=== PATIENT | male | born 1965 | race Caucasian/White ===

== ENCOUNTER 2018-01-17 09:24 | Inpatient (IN) | payer BC, OTHER ==
--- NOTE | 2018-01-17 10:00 | EDPHY ---
H & P Time Seen by Provider: 01/17/18 09:45 HPI/ROS: Chief complaint. Fatigue, increased urination HPI. Patient is a 52-year-old male who finish the lead [employer] running race last weekend. He had nausea vomiting the 1st 2 days. He has had continued fatigue. He has had frequent urination of clear urine without dysuria. Due to training injuries he was taking lots of Advil during the race but not since. Maybe had a fever a few days ago. No sore throat of cough though he did have some shortness of breath originally. He has some crampy mid abdominal pain and now epigastric pain. Decreased stool over the past week. Normally healthy. No similar symptoms previously ROS Constitutional. Fatigue Eyes. no problems with vision ENT. no sore throat, no nasal drainage Cardiovascular. no chest pain Respiratory. Congestion and shortness of breath Abdominal. Abdominal pain with nausea vomiting . Frequent urination MS. no calf pain/swelling, no neck/back pain, no joint pain Skin. no rash Lymph. no swollen glands Neuro. no headache, no dizziness, no difficulty walking or with speech Past Medical/Surgical History: Healthy Social History: , nonsmoker, no alcohol Smoking Status: Never smoked Physical Exam: General Appearance: Alert well-developed male mild distress vital signs are stable Eyes: Pupils equal and round no pallor or injection. ENT, Mouth: Mucous membranes are moist. Respiratory: There are no retractions, lungs are clear to auscultation. Cardiovascular: Regular rate and rhythm. Gastrointestinal: Abdomen is soft with epigastric tenderness. Some mild low abdominal tenderness. No particular tenderness at McBurney's point. No masses. Normal bowel sounds Neurological: Awake and alert, sensory and motor exams grossly normal. Skin: Warm and dry, no rashes. Musculoskeletal: Neck is supple nontender. Extremities symmetrical, full range of motion. Psychiatric: Patient is oriented X 3, there is no agitation. Constitutional: Initial Vital Signs Temperature (C) 36.7 C 01/17/18 09:29 Heart Rate 50 L 01/17/18 09:29 Respiratory Rate 15 01/17/18 09:29 Blood Pressure 145/93 H 01/17/18 09:29 O2 Sat (%) 98 01/17/18 09:29 O2 Delivery Mode Room Air Allergies/Adverse Reactions: Penicillins Allergy (Unknown, Verified 01/17/18 11:33) Other-Enter Comments Home Medications: Medication Instructions Recorded NK [No Known Home Meds] 01/17/18 Medical Decision Making - Diagnostics Imaging Results: Imaging Impressions Chest X-Ray 01/17/18 10:23 Impression: 1. No focal pneumonia. 2. No pneumothorax. Chest x-ray interpreted by me is normal Procedures: IV normal saline ED Course/Re-evaluation: The patient in and I discussed imaging and lab results. We discussed treatment plan including recommendation for admission. They expressed understanding and agreement I consulted and discussed the case with Nephrology due to the patient's acute renal failure and rhabdomyolysis. They recommend fluid resuscitation. I consulted discussed case with Dr. Tesfaye, hospitalist who agrees to the admission Differential Diagnosis: I considered intestinal ischemia. The patient has pancreatitis. He has acute renal failure. He has rhabdomyolysis. No evidence for pneumonia - Data Points Laboratory Results: Laboratory Results 01/17/18 09:50 01/17/18 09:50 01/17/18 01/17/18 01/17/18 10:55 09:50 09:50 WBC RBC Hgb Hct MCV MCH MCHC RDW Plt Count MPV Neut % (Auto) Lymph % (Auto) [place] % (Auto) Eos % (Auto) Baso % (Auto) Nucleat RBC Rel Count Absolute Neuts (auto) Absolute Lymphs (auto) Absolute Monos (auto) Absolute Eos (auto) Absolute Basos (auto) Absolute Nucleated RBC Immature Gran % Immature Gran # PT 13.3 SEC SEC (12.0-15.0) INR 0.99 (0.83-1.16) APTT 29.7 SEC SEC (23.0-38.0) Sodium Potassium Chloride Carbon Dioxide Anion Gap BUN Creatinine Estimated GFR Glucose Calcium Total Bilirubin 0.7 mg/dL mg/dL (0.1-1.4) Conjugated Bilirubin 0.1 mg/dL mg/dL (0.0-0.5) Unconjugated Bilirubin 0.6 mg/dL mg/dL (0.0-1.1) AST 60 IU/L H IU/L (17-59) ALT 361 IU/L H IU/L (21-72) Alkaline Phosphatase 57 IU/L IU/L (38-126) Creatine Kinase CK-MB (CK-2) Fraction CK-MB (CK-2) % Creatine Kinase Interp Total Protein 6.5 g/dL g/dL (6.3-8.2) Albumin 4.0 g/dL g/dL (3.5-5.0) Lipase Urine Color PALE YELLOW Urine Appearance CLEAR Urine pH 5.0 (5.0-7.5) Ur Specific [place] 1.010 (1.002-1.030) Urine Protein NEGATIVE (NEGATIVE) Urine Ketones NEGATIVE (NEGATIVE) Urine Blood 2+ H (NEGATIVE) Urine Nitrate NEGATIVE (NEGATIVE) Urine Bilirubin NEGATIVE (NEGATIVE) Urine Urobilinogen NEGATIVE EU EU (0.2-1.0) Ur Leukocyte Esterase NEGATIVE (NEGATIVE) Urine RBC 10-15 /hpf H /hpf (0-3) Urine WBC 1-3 /hpf /hpf (0-3) Ur Epithelial Cells NONE SEEN /lpf /lpf (NONE-1+) Urine Mucus TRACE /lpf /lpf (NONE-1+) Urine Glucose NEGATIVE (NEGATIVE) 01/17/18 01/17/18 09:50 09:50 WBC 9.71 10^3/uL H 10^3/uL (3.80-9.50) RBC 5.10 10^6/uL 10^6/uL (4.40-6.38) Hgb 15.5 g/dL g/dL (13.7-17.5) Hct 44.1 % % (40.0-51.0) MCV 86.5 fL fL (81.5-99.8) MCH 30.4 pg pg (27.9-34.1) MCHC 35.1 g/dL g/dL (32.4-36.7) RDW 12.9 % % (11.5-15.2) Plt Count 284 10^3/uL 10^3/uL (150-400) MPV 9.1 fL fL (8.7-11.7) Neut % (Auto) 75.6 % H % (39.3-74.2) Lymph % (Auto) 10.2 % L % (15.0-45.0) [place] % (Auto) 10.8 % % (4.5-13.0) Eos % (Auto) 2.2 % % (0.6-7.6) Baso % (Auto) 0.6 % % (0.3-1.7) Nucleat RBC Rel Count 0.0 % % (0.0-0.2) Absolute Neuts (auto) 7.34 10^3/uL H 10^3/uL (1.70-6.50) Absolute Lymphs (auto) 0.99 10^3/uL L 10^3/uL (1.00-3.00) Absolute Monos (auto) 1.05 10^3/uL H 10^3/uL (0.30-0.80) Absolute Eos (auto) 0.21 10^3/uL 10^3/uL (0.03-0.40) Absolute Basos (auto) 0.06 10^3/uL 10^3/uL (0.02-0.10) Absolute Nucleated RBC 0.00 10^3/uL 10^3/uL (0-0.01) Immature Gran % 0.6 % % (0.0-1.1) Immature Gran # 0.06 10^3/uL 10^3/uL (0.00-0.10) PT INR APTT Sodium 140 mEq/L mEq/L (135-145) Potassium 5.3 mEq/L H mEq/L (3.3-5.0) Chloride 106 mEq/L mEq/L (97-110) Carbon Dioxide 25 mEq/l mEq/l (22-31) Anion Gap 9 mEq/L mEq/L (8-16) BUN 92 mg/dL H mg/dL (7-23) Creatinine 3.6 mg/dL H mg/dL (0.7-1.3) Estimated GFR 18 Glucose 103 mg/dL H mg/dL (70-100) Calcium 9.8 mg/dL mg/dL (8.5-10.4) Total Bilirubin Conjugated Bilirubin Unconjugated Bilirubin AST ALT Alkaline Phosphatase Creatine Kinase 612 IU/L H IU/L (0-224) CK-MB (CK-2) Fraction 9.71 ng/mL H ng/mL (0.00-4.55) CK-MB (CK-2) % 1.6 % % (0.0-4.0) Creatine Kinase Interp NEGATIVE (NEGATIVE) Total Protein Albumin Lipase 776 IU/L H IU/L (23-300) Urine Color Urine Appearance Urine pH Ur Specific [place] Urine Protein Urine Ketones Urine Blood Urine Nitrate Urine Bilirubin Urine Urobilinogen Ur Leukocyte Esterase Urine RBC Urine WBC Ur Epithelial Cells Urine Mucus Urine Glucose Medications Given: Heparin Sodium (Porcine) (Heparin Sc Injection) 5,000 unit SC Q8 DAVE Stop: 07/16/18 13:59 Last Admin: 01/17/18 15:03 Dose: 5,000 unit Sodium Chloride (Ns) 1,000 mls @ 125 mls/hr IV CONT DAVE Stop: 07/16/18 15:59 Last Admin: 01/17/18 16:14 Dose: 1,000 mls Discontinued Medications Sodium Chloride (Ns) 1,000 mls @ 0 mls/hr IV EDNOW ONE; Wide Open PRN Reason: Protocol Stop: 01/17/18 10:23 Last Admin: 01/17/18 10:27 Dose: 1,000 mls Sodium Chloride (Ns) 1,000 mls @ 0 mls/hr IV EDNOW ONE; Wide Open PRN Reason: Protocol Stop: 01/17/18 11:20 Last Admin: 01/17/18 11:27 Dose: 1,000 mls Ondansetron HCl (Zofran) 4 mg IVP EDNOW ONE Stop: 01/17/18 11:53 Last Admin: 01/17/18 11:55 Dose: 4 mg Departure - Departure Disposition: [facility] In[facility] Acute Clinical Impression: Rhabdomyolysis Qualifiers: Rhabdomyolysis type: traumatic Encounter type: initial encounter Qualified Code (s): T79.6XXA - Traumatic ischemia of muscle, initial encounter Renal failure, acute Qualifiers: Acute renal failure type: unspecified Qualified Code(s): N17.9 - Acute kidney failure, unspecified Pancreatitis Qualifiers: Chronicity: acute Pancreatitis type: unspecified pancreatitis type Acute pancreatitis complication: unspecified Qualified Code(s): K85.90 - Acute pancreatitis without necrosis or infection, unspecified Condition: Fair
[2018-01-17] MEDS ORDERED: NS 1,000 ML IV ONE ×2 (10:22→11:19)
[2018-01-17 10:30] LABS: PLATELET COUNT 284 10^3/uL (150-400)
[2018-01-17 10:34] LABS: CREATINE KINASE 612 IU/L (0-224)
[2018-01-17 10:38] LABS: INR 0.99 (0.83-1.16); PROTIME(PATIENT) 13.3 SEC (12.0-15.0)
[2018-01-17] MEDS ORDERED: ONDANSETRON 4 MG/2 ML VIAL IVP PRN (11:29)
[2018-01-17] MEDS ORDERED: ONDANSETRON DISINTEGRATING 4 MG TAB PO PRN (11:29)
[2018-01-17] MEDS ORDERED: ACETAMINOPHEN 325 MG TAB PO PRN (11:29)
[2018-01-17] MEDS ORDERED: ONDANSETRON 4 MG/2 ML VIAL IVP ONE (11:52)
[2018-01-17] MEDS ORDERED: hydrALAZINE 20 MG/ML VIAL IVP PRN (12:07)
--- NOTE | 2018-01-17 13:51 | GHP ---
[f rep st] HISTORY AND PHYSICAL DATE OF ADMISSION: 01/17/2018 CHIEF COMPLAINT: Nausea, fatigue. HISTORY OF PRESENT ILLNESS: A pleasant 52-year-old male with no past medical history, presenting with fatigue and nausea for the past week. He participated in [employer] last weekend. Thursday he completed 100 mile run. The week prior, he completed 100 mile mountain bike ride, followed by a 10K. The day he completed the race, he went home and felt fairly well, but then was overcome by fatigue. Was sleeping up to 20 hours a day for 2 days. Subsequently developed intermittent nausea. Was still eating but decreased amount of food intake. He presented to the ER today because he just felt out of it. He thinks he may have had a subjective fever. He has no noticed increased urination since the race. He was well hydrated during the run. He took sixteen, 200 mg Advil in a 24-hour period. Prior to that, was using 2 tabs a couple times a week. Noted a rash from his shins to his upper thighs and wrists to upper arms. After the race, it was itchy and mildly red. Improved with what sounds like a steroid cream. Denies joint swelling, redness or pain chronically. No chills, sweats, or diarrhea. REVIEW OF SYSTEMS: I completed a 10-point review of systems, negative except as noted in the HPI. PAST MEDICAL HISTORY: None. PAST SURGICAL HISTORY: He had neck surgery as a teenager. FAMILY HISTORY: Paternal grandfather with heart disease. SOCIAL HISTORY: Lives in [place] with his and daughter. No tobacco, alcohol, or illicits. PHYSICAL EXAMINATION: VITAL SIGNS: Temperature 36.4, blood pressure 140/81, heart rate 40-50, respirations 12, 96% on room air. GENERAL: Well-appearing male , thin, no acute distress. HEENT: PERRLA. Moist mucous membranes. CV: Cody, but regular. No lower extremity edema LUNGS: Clear. No crackles or wheezing . ABDOMEN: Soft, nontender, nondistended. Positive bowel sounds. : No Garcia. MUSCULOSKELETAL: 5/5 upper lower extremity strength. NEURO: 2 through 12 intact. PSYCH: Alert and oriented x3. LABORATORY DATA: WBC 9, hemoglobin 15, hematocrit 44, platelets 284. Coags within normal. Sodium 140, potassium 5.3, chloride 106, carbon dioxide 25, BUN is 92, creatinine is 3.6. No old to compare. Glucose 103, calcium 9.8, phosphorus 5.4, AST 60, ALT 361. CK is 612, CKMB. Total protein 6.5, albumin 4 , lipase 770. Abdominal ultrasound pending. Chest x-ray personally reviewed by me. No edema or pneumonia. ASSESSMENT AND PLAN: 1. Acute kidney injury:multifactorial with strenuous exercise, NSAIDs, and dehydration. Dr. De León with Nephrology has consulted. Immunologic studies are pending with reported rash, though described as poison favio and not chronic joint swelling, pain Ultrasound is pending. IVFs 2. Accelerated hypertension. p.r.n. hydralazine. 3. Rash: resolved. Sounds like poison favio or oak. 4. Rhabdomyolysis. mild. Likely worse earlier this week. Continue IVFs 5. Transaminitis. May have been hypotensive at some point. Ultrasound is pending. 6. Hyperkalemia: Minimally elevated. Will repeat. 7. Elevated lipase: denies abd pain. ADAT, IVFs. If progresses, check U/S 8. Diet: Low potassium. 9 Deep venous thrombosis prophylaxis: Subcutaneous heparin. 10. Symptomatic uremia: tx nausea with PRN antiemetics . Disposition. Patient warrants observation admission given acute renal failure warranting serial labs, ultrasound. /[id number]/MODL MTDD
--- NOTE | 2018-01-17 13:51 | GCON ---
[f rep st] CONSULTATION RENAL CONSULTATION. REASON FOR CONSULTATION: Acute kidney injury. HISTORY OF PRESENT ILLNESS: The patient is a 52-year-old with no past medical history who presents w ith acute renal failure, new onset. The patient rans the [employer] last week. He completed the race and was doing well that time, though he about 16 pills of ibuprofen to help him get through the discomfort. He had some Achilles pain that had been nagging him. After the race for the next 2 days , he slept about 20 hours. He also had a couple of episodes of nausea and vomiting. He had some dec reased oral intake during this time. He continue to drink some fluids and he continued to have urine output and actually noted some polyuria, going about every hour and a half to 2 hours. He had signi ficant swelling to his lower extremities, which has since resolved. He also noted a rash on his expo sed extremities, which was red, splotchy, itchy, and has since resolved. This did occur in any areas that were covered by his clothing. He also some nasal congestion which has since resolved. Currently, he denies any fevers, chills, headache, shortness of breath, or chest pain. He experience d an episode of vomiting in the ER today. He denies any flank pain. He does have some mild epigastr ic pain. He denies any dysuria or hematuria. Denies any bowel dysfunction. He had some muscle pain after the pain, more so in his quads, which he attributes to an accommodation that he made in his ru nning style for the Achilles pain. He denies any muscle pain that was out of proportion to what he m ight expect after running this race. He denies any particularly painful, cool, or pale extremities. He has not taken any NSAIDs since the event. He has intermittently taken it in the past. He denies any recent use of antibiotics, no exposure to any contrast. He denies any known history of any hepa titis or autoimmune disease. PAST MEDICAL HISTORY: Denies. PAST SURGICAL HISTORY: Denies. HOME MEDICATIONS: None. ALLERGIES: Penicillin. SOCIAL HISTORY: Nonsmoker. Rare alcohol. REVIEW OF SYSTEMS: Ten systems reviewed and negative, except as per HPI. PHYSICAL EXAMINATION: VITAL SIGNS: Temperature 36.7, heart rate 45, respirations 15, blood pressure 154/91. GENERAL: Awake, alert and oriented x3, in no acute distress, except when he had the episod e of emesis. HEENT: Extraocular muscles intact. Mucosal membranes somewhat dry. NECK: Supple. N o JVD. PULMONARY: Clear to auscultation bilaterally. CV: Mild bradycardia, regular rhythm. No mu rmurs, rubs, or gallops. ABDOMEN: Mild tenderness in the epigastrium. Otherwise nontender. Positi ve bowel sounds. BACK: No flank pain or CVA tenderness. EXTREMITIES: No clubbing, cyanosis, or ed justin. SKIN: No rash or lesion. MUSCULOSKELETAL: Range of motion appears normal NEURO: Cranial ner ves 2 through 12 grossly intact. LABORATORY/IMAGING: Sodium 140, potassium 5.3, chloride 106, bicarb 25, BUN 92, creatinine 3.6, calc ium 9.8. AST 60, ALT 361. CK 612. Lipase 776. Albumin 4.0. White count 9.7, hemoglobin 15.5, cherelle telets 284. INR 1. Urinalysis: 2+ blood, negative protein, 10-15 rbc's, 1-3 wbc's. ASSESSMENT/PLAN: 1. Acute kidney injury. Presumably this is an acute episode with a described event of running the [employer] 100 last week, followed by a couple of days of severe fatigue, some lower extremity edema, a nd now presenting with elevated creatinine. He took heavy nonsteroidal anti-inflammatory drugs durin g the race, which may be contributory. He also has labs now that are consistent mild rhabdomyolysis, possibly resolution of an earlier more severe degree. He has mild elevation of ALT relative to AST, which could be from the rhabdomyolysis or possible hepatitis, we will check labs. He has mild eleva tion of lipase, could be consistent with pancreatitis. As a result of that or otherwise due to his d ecreased intake recently, he may have a prerenal azotemia as he has a high BUN; creatinine ratio. He is currently being repleted with intravenous fluids. Will check serologies given that there was maday e blood on the urinalysis and he did have a rash, although the rash would be atypical for vasculitis based on his description and is currently not present. Also, there is no proteinuria on the urinalys is, which would be less likely indicative of rapidly progressive glomerulonephritis. Will check furt her serologies, check renal ultrasound, quantify urine protein:creatinine ratio and check urine chemi stries. The differential is still somewhat broad and will be further defined by the patient's respon se to suppose care and monitoring labs over the subsequent day or so. There is no urgent need for he modialysis at this time. 2. Rhabdomyolysis. Currently, CK is very mildly elevated at 612, but likely this has decreased from a potentially much higher level earlier as he ran 100 miles last week and was significantly fatigued with sore muscles afterwards. Fortunately, the patient did not have any oliguria and reports making good urine throughout. He will be placed on intravenous fluids to help mobilize any remaining myogl obin and increase renal flow. 3. Hyperkalemia. This is very mild at 5.3 and likely due to the elevated creatinine. He should be given a low potassium diet. Hemodialysis is not needed at this time. This could be treated medicall y if it rises. Avoid nonsteroidal anti-inflammatory drugs, which may have also exacerbated this. 4. Pancreatitis. Patient has moderate elevation of lipase, about 2-1/2 times the upper limit of nor mal. He also has some tender epigastrium. He may need a brief period of being n.p.o. or being caremn nued on fluids. He will also receive supportive care for nausea and vomiting with Zofran. Thank you very much for this interesting consult. We will follow with you. /[id number]/MODL
[2018-01-17] MEDS: HEPARIN 5,000 UNIT/0.5 ML INJ SC SCH ×2 (15:03→21:19)
[2018-01-17] MEDS: NS 1,000 ML IV SCH ×2 (16:14→23:12)
[2018-01-18 03:46] LABS: HEPATITIS B CORE AB IGM NEGATIVE (NEGATIVE); HEPATITIS B CORE AB TOTAL NEGATIVE (NEGATIVE); HEPATITIS B SURFACE ANTIGEN NEGATIVE (NEGATIVE); HEPATITIS C ANTIBODY TOTAL NEGATIVE (NEGATIVE)
[2018-01-18] MEDS: HEPARIN 5,000 UNIT/0.5 ML INJ SC SCH ×3 (05:49→21:14)
[2018-01-18] MEDS: NS 1,000 ML IV SCH ×2 (07:14→16:19)
--- NOTE | 2018-01-18 09:58 | ASMTCMCOM ---
CM Note CM Note Notes: Spoke with Pt's RN. Pt admitted for rhabdomyolysis, ARF and pancreatitis due to participation in [employer] foot race. Pt normally very athletic and anticipated to discharge home independently. No CM needs identified at this time. CM to follow should needs arise. D/C Plan: home independent Date Signed: 01/18/2018 09:57 AM Electronically Signed By:Nellie Coates
--- NOTE | 2018-01-18 10:17 | SOAPPROG ---
SOAP Progress Note Assessment/Plan: Assessment: 1. INDIGO Pt with INDIGO, transaminitis, rhabdo, hematuria without proteinuria, s/p [place] 100. I suspect this is a combination of NSAIDs, ATN, and rhabdo. He appears to be responding to IVF. One note; Josh did drink some fresh stream water without filtration during the race. For now, would continue IVF and follow. If his hematuria does not resolve, this will need further evaluation. Plan: 01/18/18 10:11 Subjective: Doing ok. Appetite improving. Objective: Vital Signs Temp Pulse Resp BP Pulse Ox 36.9 C 41 L 19 128/70 H 95 01/18/18 07:29 01/18/18 07:29 01/18/18 07:29 01/18/18 07:29 01/18/18 07:29 Laboratory Results 01/18/18 04:20 01/17/18 01/18/18 01/19/18 05:59 05:59 05:59 Intake Total 4450 Balance 4450 PT 13.3 SEC (12.0-15.0) 01/17/18 09:50 INR 0.99 (0.83-1.16) 01/17/18 09:50 Physical Exam - Physical Exam General Appearance: no apparent distress Respiratory: lungs clear Cardiac/Chest: regular rate, rhythm Extremities: normal inspection Neuro/Psych: oriented x 3 ICD10 Worksheet Patient Problems: Problems Problem Status Onset Pancreatitis Acute Renal failure, acute Acute Rhabdomyolysis Acute
[2018-01-18 11:19] LABS: HEPATITIS A ANTIBODY TOTAL BORDERLINE (NEGATIVE)
--- NOTE | 2018-01-18 12:05 | HOSPPROG ---
Hospitalist Progress Note Assessment/Plan: 52y male with c/o n/v and weakness. First encounter, chart reviewed. # INDIGO -improving with hydration -NSAIDS, dehydration, s/p [place] 100 #Rhabdo -cont IVF #HTN -better #Rash -resolved #Transaminitis -US stable -improving #Hyperkalemia -stable -follow #Dispo -unclear -cont IVF -check labs in am Subjective: Feeling better. Eager to go home. Pain better. Objective: Vital Signs Temp Pulse Resp BP Pulse Ox 36.9 C 41 L 19 128/70 H 95 01/18/18 07:29 01/18/18 07:29 01/18/18 07:29 01/18/18 07:29 01/18/18 07:29 Laboratory Results 01/18/18 04:20 01/17/18 01/18/18 01/19/18 05:59 05:59 05:59 Intake Total 4450 Balance 4450 PT 13.3 SEC (12.0-15.0) 01/17/18 09:50 INR 0.99 (0.83-1.16) 01/17/18 09:50 - Physical Exam Constitutional: no apparent distress, appears nourished, not in pain Eyes: PERRL, anicteric sclera, EOMI Ears, Nose, Mouth, Throat: moist mucous membranes, hearing normal, ears appear normal Cardiovascular: No JVD, No tachycardia, No edema Respiratory: no respiratory distress, no rales or rhonchi, reduced air movement Gastrointestinal: normoactive bowel sounds, No tenderness, No ascites Skin: warm, normal color, No mottled Musculoskeletal: normal joint ROM, no joint effusions, generalized weakness Neurologic: AAOx3 Psychiatric: interacting appropriately, not anxious, not encephalopathic, thought process linear ICD10 Worksheet Patient Problems: Problems Problem Status Onset Rhabdomyolysis Acute Renal failure, acute Acute Pancreatitis Acute
--- NOTE | 2018-01-18 13:14 | PDMN ---
Medical Necessity Medical necessity: [facility] musculoskeletal disease Rhabdomyolysis 2 days: N/V/ weakness- INDIGO- improving hydration with ongoing need for IVF, monitoring of renal status BUN 92, elevated Cr. 3.6 on admit- improving, hyperkalemia 5.3, HTN, -transminitis-improving, pancreatitis- Lipase 776 - further monitoring and tx needed > 2 MN status changed to INPT 01/18/18
[2018-01-18 17:47] LABS: HEPATITIS A ANTIBODY TOTAL BORDERLINE (NEGATIVE)
[2018-01-19] MEDS: HEPARIN 5,000 UNIT/0.5 ML INJ SC SCH ×3 (06:15→21:11)
--- NOTE | 2018-01-19 13:47 | SOAPPROG ---
SOAP Progress Note Assessment/Plan: Assessment/Plan: 52 y/o M who ran the [email or web address] and presented with INDIGO thought to be 2/2 to NSAIDs/ATN, now improving. INDIGO -no h/o CKD -BP's improved -Cr down to 2.4 -continue IVF NS 125ml/hr for now -ASO negative, other serologies pending -K+ improved, may resume normal diet -continue to monitor, may discharge pending primary team discretion -will schedule f/u with [facility] in 4 weeks -will sign off, please contact if ?'s #[phone] 01/19/18 13:48 Subjective: Not recording UO but patient says making good urine. Objective: Vital Signs Temp Pulse Resp BP Pulse Ox 36.8 C 43 L 18 130/82 H 95 01/19/18 11:29 01/19/18 11:29 01/19/18 11:29 01/19/18 11:29 01/19/18 07:58 Laboratory Results 01/19/18 09:14 01/18/18 01/19/18 01/20/18 05:59 05:59 05:59 Intake Total 850 1781 Output Total 0 Balance 850 1781 PT 13.3 SEC (12.0-15.0) 01/17/18 09:50 INR 0.99 (0.83-1.16) 01/17/18 09:50 Physical Exam - Physical Exam General Appearance: WD/WN, alert, no apparent distress EENT: PERRL/EOMI Neck: non-tender, full range of motion, normal inspection Respiratory: chest non-tender, lungs clear, normal breath sounds Cardiac/Chest: normal peripheral pulses, regular rate, rhythm Abdomen: normal bowel sounds, non-tender, soft Skin: normal color, warm/dry Extremities: normal range of motion, non-tender Neuro/Psych: no motor/sensory deficits, alert, normal mood/affect ICD10 Worksheet Patient Problems: Problems Problem Status Onset Pancreatitis Acute Renal failure, acute Acute Rhabdomyolysis Acute
[2018-01-19] MEDS: NS 1,000 ML IV SCH ×2 (14:05→21:11)
--- NOTE | 2018-01-19 14:09 | HOSPPROG ---
Hospitalist Progress Note Assessment/Plan: 52y male with c/o n/v and weakness. # INDIGO -improving with hydration -NSAIDS, dehydration, s/p [place] 100 -cont IVF #Rhabdo -resolved #HTN -better #Rash -resolved #Transaminitis -US stable -improving #Hyperkalemia -stable -change to regular diet #Dispo -likely in am -cont IVF -check labs in am Subjective: Feeling better. No pain no nausea. Objective: Vital Signs Temp Pulse Resp BP Pulse Ox 36.8 C 43 L 18 130/82 H 95 01/19/18 11:29 01/19/18 11:29 01/19/18 11:29 01/19/18 11:29 01/19/18 07:58 Laboratory Results 01/19/18 09:14 01/18/18 01/19/18 01/20/18 05:59 05:59 05:59 Intake Total 850 1781 Output Total 0 Balance 850 1781 PT 13.3 SEC (12.0-15.0) 01/17/18 09:50 INR 0.99 (0.83-1.16) 01/17/18 09:50 - Physical Exam Constitutional: no apparent distress, appears nourished Eyes: PERRL, anicteric sclera Ears, Nose, Mouth, Throat: moist mucous membranes, hearing normal Cardiovascular: No JVD, No edema Respiratory: no respiratory distress, reduced air movement Gastrointestinal: No tenderness, No ascites Skin: warm, normal color Musculoskeletal: normal joint ROM, no joint effusions Neurologic: AAOx3 Psychiatric: interacting appropriately, not anxious, not encephalopathic ICD10 Worksheet Patient Problems: Problems Problem Status Onset Rhabdomyolysis Acute Renal failure, acute Acute Pancreatitis Acute
[2018-01-20] MEDS: NS 1,000 ML IV SCH (05:05)
[2018-01-20] MEDS: HEPARIN 5,000 UNIT/0.5 ML INJ SC SCH ×2 (05:05→14:45)
[2018-01-20 11:43] VITALS: BP 143/79
--- NOTE | 2018-01-20 14:19 | HOSPPROG ---
Hospitalist Progress Note Assessment/Plan: Josh is 52y male with c/o n/v and weakness. Today is my first encounter w the patient, chart reviewed. 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 Objective: Vital Signs Temp Pulse Resp BP Pulse Ox 36.7 C 43 L 22 H 143/79 H 97 01/20/18 11:41 01/20/18 11:41 01/20/18 11:41 01/20/18 11:41 01/20/18 11:41 Laboratory Results 01/20/18 05:06 01/19/18 01/20/18 01/21/18 05:59 05:59 05:59 Intake Total 850 3479 Output Total 0 Balance 850 3479 PT 13.3 SEC (12.0-15.0) 01/17/18 09:50 INR 0.99 (0.83-1.16) 01/17/18 09:50 - Physical Exam Constitutional: no apparent distress, appears nourished, not in pain Eyes: PERRL Ears, Nose, Mouth, Throat: hearing normal Cardiovascular: regular rate and rhythym Respiratory: no respiratory distress Gastrointestinal: normoactive bowel sounds Skin: warm Musculoskeletal: full muscle strength Neurologic: AAOx3 ICD10 Worksheet Patient Problems: Problems Problem Status Onset Pancreatitis Acute Renal failure, acute Acute Rhabdomyolysis Acute
--- NOTE | 2018-01-20 15:37 | GDS ---
[f rep st] DISCHARGE SUMMARY DISCHARGE DIAGNOSES: 1. Acute kidney injury. 2. Rhabdomyolysis. 3. Hypertension. 4. Bradycardia. 5. Rash. 6. Transaminitis. 7. Hematuria. 8. Hyperkalemia. CONSULTATION: Dr. Rocco De León with Nephrology. HISTORY OF PRESENT ILLNESS: Briefly, Josh Jacobo is a 52-year-old male without any significant past medical history. He presented with fatigue and nausea for the past week. He participated in [place] [employer] [place] last weekend and he completed the 100-mile run. A week prior he completed a 100- mile mountain bike ride followed by 10 km run. He started having intermittent nausea. He was eating but had a decreasing amount of food intake. He was taking Advil because he was having pain to his upper thigh area. It was noted on admission he was in acute renal failure. He was seen and evaluated by Dr. Rocco De León. He was treated with IV fluids. His kidney function has improved. Recommendation is for him to get this rechecked early next week by his primary care provider. HOSPITAL COURSE: 1. Acute kidney injury. This improved with hydration. His creatinine is 2.1. I told him to avoid all NSAIDs and to get a kidney function checked early next week. 2. Rhabdomyolysis, resolved. 3. Hypertension. His blood pressure has been elevated throughout his stay. I have recommended that he get a blood pressure cuff check daily and take a copy of his results to his PCP. 4. Bradycardia. This is secondary from being fit. 5. Rash, resolved. 6. Transaminitis. Ultrasound is stable. Recommend that he get repeat LFTs early next week. 7. Hematuria. Recommend that he get a repeat UA with his PCP to make sure this is resolved. 8. Hyperkalemia. Resolved. DISCHARGE CONDITION: Stable. Blood pressure is 143/79, heart rate of 43, respiratory rate 22, O2 sats on room air 96%, temperature is 36.7 Celsius. MEDICATIONS AT DISCHARGE: Please see the EMR. DISCHARGE INSTRUCTIONS: 1. To get repeat labs with his primary care provider early next week. 2. To avoid all NSAIDs until his kidney function is completely improved and then to use them sparingly. Copy requested to: PCP not in dictionary /[id number]/MODL MTDD
== END 2018-01-20 15:32 | disposition home or self-care (01) | DRG 684 ==
LOC: INTOOBSV 11:19 → F3E 12:04 → OBSVTOIN 01-18 12:10
PROVIDERS: ADMIT Internal Medicine; ATTEND Internal Medicine
DX: N17.9 Acute kidney failure, unspecified (principal); T79.6XXA Traumatic ischemia of muscle, initial encounter; T39.391A Poisoning by other nonsteroidal anti-inflammatory drugs [NSAID], accidental (unintentional), initial encounter; E86.0 Dehydration; I10 Essential (primary) hypertension; R00.1 Bradycardia, unspecified; R21 Rash and other nonspecific skin eruption; R74.0 Nonspecific elevation of levels of transaminase and lactic acid dehydrogenase [LDH]; R10.13 Epigastric pain; Z88.0 Allergy status to penicillin
CPT/HCPCS: 83516-90; 83520-90; 86704-90; 86705-90; 86708-90; 96374; G0378; G0472; J1644; J2405